=== PATIENT | female | born 1990 | race African-American/Black ===

== ENCOUNTER 2019-04-25 05:51 | Emergency (ER) | payer MEDICAID ==
[~2019-04-25] VITALS: Ht 172.7 cm; Wt 70.0 kg
[~2019-04-25 05:51] MED LIST: KEPPSOL PO; LAM25 PO
[2019-04-25 09:49] LABS: CLARITY URINE CLOUDY (CLEAR); COLOR URINE YELLOW (YELLOW); KETONES URINE NEGATIVE (NEGATIVE); LEUKOCYTE ESTERASE URINE 2+ (NEGATIVE); NITRITE URINE POSITIVE (NEGATIVE); OCCULT BLOOD URINE NEGATIVE (NEGATIVE); PH URINE 6.5 (4.5-8.0); PROTEIN URINE NEGATIVE (NEGATIVE); SPECIFIC GRAVITY URINE 1.017 (1.005-1.030); UROBILINOGEN URINE 0.2 E.U./dL (0.2-1.0)
[2019-04-25] MEDS ORDERED: SODIUM CHLORIDE 0.9% 1000ML BAG (SEPSIS BOLUS) IV ONE (10:45)
[2019-04-25] MEDS ORDERED: CEFTRIAXONE 1 G PREMIX 50 ML IV ONE (10:45)
[2019-04-25 11:58] LABS: BASOPHILS % 1.2 % (0.0-2.0); EOSINOPHILS % 1.6 % (0.0-5.0); HEMATOCRIT. 40.8 % (36.0-48.0); HEMOGLOBIN. 13.3 g/dL (12.0-16.0); LYMPHOCYTES % 50.4 % (20.0-50.0); MEAN CORPUSCULAR HEMOGLOBIN 27.3 pg (28.0-32.0); MEAN CORPUSCULAR VOLUME 83.6 fL (81.0-99.0); MEAN PLATELET VOLUME 7.7 fl (7.4-10.4); MONOCYTES % 9.6 % (2.0-8.0); NEUTROPHILS % 37.2 % (40.0-76.0); PLATELET 250 x1000/uL (130-400); RED BLOOD CELL COUNT 4.88 mill/uL (4.2-5.4)
[2019-04-25 12:07] LABS: PROTHROMBIN TIME 10.3 sec (9.6-11.0)
[2019-04-25 12:10] LABS: CHLORIDE 107 mEq/L (98-107)
[2019-04-25 12:26] LABS: C REACTIVE PROTEIN QUANT 1.1 mg/L (0.0-3.0)
[2019-04-25] MEDS ORDERED: LEVETIRACETAM 500MG TABLET PO ONE (13:15)
[2019-04-25] MEDS ORDERED: ACETAMINOPHEN 500MG TABLET PO ONE (14:15)
[2019-04-25 14:59] VITALS: BP 113/65
== END 2019-04-25 17:05 | disposition home or self-care (01) ==
LOC: ER 05:51
DX: G89.29 Other chronic pain (principal); M25.552 Pain in left hip; N39.0 Urinary tract infection, site not specified; G40.909 Epilepsy, unspecified, not intractable, without status epilepticus; J45.909 Unspecified asthma, uncomplicated; Z86.011 Personal history of benign neoplasm of the brain
CPT/HCPCS: 36415; 73502; 73562; 73721; 80053; 81003; 81025; 83605; 85025; 85610; 85651; 86140; 87040; 87077; 87086; 87186; 96365; 99284; J0696; J7030; Z7610